=== PATIENT | female | born 1975 | race African-American/Black ===

== ENCOUNTER 2016-06-29 10:41 | Emergency (ER) | payer SELFPAY ==
[~2016-06-29] VITALS: Ht 165.1 cm; Wt 56.7 kg
[~2016-06-29 10:41] MED LIST: CEPHALEXIN500 MG ORAL; LEVAQUIN500 MG ORAL; NKM; ONDANSETRON ODT4 MG ORAL; PHENAZOPYRIDIN100 MG ORAL; PROMETHAZINE-C118 M1 ORAL
[2016-06-29 11:00] VITALS: BP 134/92
[2016-06-29 11:45] VITALS: BP 134/92
--- NOTE | 2016-06-29 13:23 | Emergency Room Report ---
History of Present Illness General Chief Complaint: Syncope Source: Patient Present Illness HPI 41 YOF came for alleged syncope. When I went to do HPI/PE with patient, she was on phone with (who is allegedly admitted here at [facility]). Patient refused to get off the phone. Told , "I dont know why I'm here, they said I passed out after I made your bed upstairs." I told patient I would come back to speak with her when she was off phone, but RN informed me patient had signed out AMA so she could go back upstairs. Allergies: Coded Allergies: PENICILLIN V (Unverified Allergy, Severe, 12/31/13) Patient History Past Medical History: unable to obtain Past Surgical History: unable to obtain Pertinent Family History: unable to obtain Social History: Denies: alcohol use, drug use, smoking Last Menstrual Period: none Now: No Immunizations: UTD Reviewed Nursing Documentation: PMH: Agreed, PSxH: Agreed Nursing Documentation-PMH Past Medical History: No History, Except For Hx Diabetes: Yes Hx Cancer: Yes - cervical 2011 Review of Systems All Other Systems: negative except mentioned in HPI - Patient AMAed prior Physical Exam Vital Signs Date Time Temp Pulse Resp B/P Pulse Ox O2 Delivery O2 Flow Rate FiO2 06/29/16 11:00 98.2 125 16 134/92 96 Room Air Sp02 EP Interpretation: reviewed, abnormal General Appearance: normal inspection, well appearing, no apparent distress, alert, GCS 15, non-toxic, other - Talking on phone in stretcher. Not post-ictal Head: normocephalic, atraumatic Eyes: bilateral eye EOMI, bilateral eye PERRL ENT: normal ENT inspection, normal voice Neck: normal inspection, full range of motion, supple Respiratory: normal inspection, no respiratory distress, no retraction, no accessory muscle use, no wheezing, speaking full sentences Cardiovascular #1: regular rate, rhythm, no edema, tachycardia Gastrointestinal: normal inspection, no guarding Musculoskeletal: normal inspection Neurologic: normal inspection, alert, oriented x3, responsive, speech normal Psychiatric: normal inspection, judgement/insight normal, mood/affect normal Skin: normal inspection, normal color, no rash Lymphatic: normal inspection Medical Decision Making Diagnostic Impression: Primary Impression: Syncope Qualified Codes: R55 - Syncope and collapse Additional Impression: Bronchitis ER Course 41 YOF with alleged syncopal episode. VS notable for tachycardia. Not post- ictal here. Atraumatic. Afebrile ECG notable for sinus tachycardia, no ischema Limited physical exam d/t patient wanting to leave AMA Patient is clinically sober, is free from from distracting injury, and has intact judgement and capacity to decide to leave against medical advice. Patient came in with atraumatic syncope. I'm concerned for cardiac abnormality, metabolic derangement, ?, UTI or other cause and wanted to do additional blood/urine testing and imaging. Patient verbalized understanding of my concern and my need to do the above testing but wants to leave to go be with her . I explained to patient the risks of leaving AMA and patient informed that if they he leaves, they could get worse, hse could become become critically ill, possibly become disabled or . Patient verbalized back to me understanding of these risks but still wants to leave. -- EKG Diagnostic Results Rate: normal, tachycardiac Rhythm: NSR ST Segments: no acute changes ASA given to the pt in ED: No Rhythm Strip Diag. Results EP Interpretation: yes Rate: 110 Rhythm: NSR, no PVC's, no ectopy Last Vital Signs Date Time Temp Pulse Resp B/P Pulse Ox O2 Delivery O2 Flow Rate FiO2 06/29/16 11:00 98.2 125 16 134/92 96 Room Air Status: improved Disposition: AGAINST MEDICAL ADVICE Referrals: NOT CHOSEN IPA/,REFERRING (PCP) JAE DONIS M.D. Jun 29, 2016 13:23
--- NOTE | 2016-06-30 15:50 | Cardiology Report ---
APPROVED REPORT EKG Measurement Heart [id number] Sinus tachycardia Otherwise normal ECG
== END 2016-06-29 11:45 | disposition left against medical advice (07) ==
LOC: EMR 11:22
DX: R55 Syncope and collapse (principal); J40 Bronchitis, not specified as acute or chronic; E11.9 Type 2 diabetes mellitus without complications; Z88.0 Allergy status to penicillin; Z85.41 Personal history of malignant neoplasm of cervix uteri
CPT/HCPCS: 82962; 93005; 99283

== ENCOUNTER 2016-06-29 15:32 | Emergency (ER) | payer SELFPAY ==
[~2016-06-29] VITALS: Ht 165.1 cm; Wt 59.0 kg
[2016-06-29 16:00] VITALS: BP 122/83
[2016-06-29] MEDS ORDERED: LORazepam Inj 2mg/ml 1ml IV ONE (16:00)
--- NOTE | 2016-07-02 14:35 | Emergency Room Report ---
History of Present Illness General Chief Complaint: Seizure Source: Medical Record Present Illness HPI 41 yo F presents to ED s/p seizure. patient was visiting her boyfriend on 4th floor of hospital when she had a witnessed seizure and fell. Rapid Response called and patient was immediately awake. patient brought down to ER for evaluation. patient doesn't remember what happened. ER Nursing staff says patient was here earlier today for similar presentation. patient had ALOC event while visiting boyfriend. patient denied any episode happened and signed out AMA. patient states she does not have history of seizures. states she drinks daily and her last drink was 3 days ago. feels tremulous and shaky. denies blurry vision, N/V. Denies other drug use. no other aggravating or relieving factors. denies any other associated symptoms. Allergies: Coded Allergies: PENICILLIN V (Unverified Allergy, Severe, 12/31/13) Patient History Past Medical History: DM Past Surgical History: none Pertinent Family History: none Social History: Denies: alcohol use, drug use, smoking Last Menstrual Period: Full hysterectomy Now: No Immunizations: UTD Reviewed Nursing Documentation: PMH: Agreed, PSxH: Agreed Nursing Documentation-PMH Hx Diabetes: Yes Hx Cancer: Yes - cervical 2011 Review of Systems All Other Systems: negative except mentioned in HPI Physical Exam Vital Signs Date Time Temp Pulse Resp B/P Pulse Ox O2 Delivery O2 Flow Rate FiO2 06/29/16 15:38 100.2 120 20 119/86 98 Room Air Sp02 EP Interpretation: reviewed, normal General Appearance: no apparent distress, alert, GCS 15, non-toxic Head: normocephalic, atraumatic Eyes: bilateral eye PERRL, bilateral eye normal inspection ENT: hearing grossly normal, normal pharynx, no angioedema, normal voice Neck: full range of motion, supple/symm/no masses Respiratory: chest non-tender, lungs clear, normal breath sounds, speaking full sentences Cardiovascular #1: regular rate, rhythm, no edema Cardiovascular #2: 2+ carotid (R), 2+ carotid (L), 2+ radial (R), 2+ radial (L) , 2+ dorsalis pedis (R), 2+ dorsalis pedis (L) Gastrointestinal: normal bowel sounds, non tender, soft, non-distended, no guarding, no rebound Rectal: deferred Genitourinary: normal inspection, no CVA tenderness Musculoskeletal: back normal, gait/station normal, normal range of motion, non- tender Neurologic: alert, oriented x3, responsive, motor strength/tone normal, sensory intact, speech normal Psychiatric: judgement/insight normal, memory normal, mood/affect normal, no suicidal/homicidal ideation Reflexes: 3+ bicep (R), 3+ bicep (L), 3+ tricep (R), 3+ tricep (L), 3+ knee (R) , 3+ knee (L) Skin: normal color, no rash, warm/dry, well hydrated Lymphatic: no adenopathy Medical Decision Making Diagnostic Impression: Primary Impression: Epileptic seizure, generalized ER Course 41 yo F presents to ED s/p seizure/fall on floor. witnessed Differential - ETOH withdrawal, intracranial injury, psychosis patient placed on stretcher. after initial history and evaluation I requested patient stay for proper evaluation given she signed out AMA last time. patient refused, patient is AAOX3. has competency to refuse care. signed AMA form diagnosis - seizure signed out AMA Last Vital Signs Date Time Temp Pulse Resp B/P Pulse Ox O2 Delivery O2 Flow Rate FiO2 06/29/16 16:00 120 20 Room Air 06/29/16 16:00 100.0 122/83 99 Status: improved Disposition: AGAINST MEDICAL ADVICE Condition: Unknown Referrals: NOT CHOSEN LYLE/,REFERRING (PCP) VIPIN HODGE M.D. Jul 02, 2016 14:35
== END 2016-06-29 16:00 | disposition left against medical advice (07) ==
LOC: EMR 16:00
DX: R56.9 Unspecified convulsions (principal); Z53.21 Procedure and treatment not carried out due to patient leaving prior to being seen by health care provider
CPT/HCPCS: 99283

== ENCOUNTER 2016-08-19 01:11 | Emergency (ER) | payer SELFPAY ==
[~2016-08-19] VITALS: Ht 165.1 cm; Wt 57.6 kg
[2016-08-19] MEDS ORDERED: Acetaminophen 500mg (ES) tab ORAL ONE (01:45)
[2016-08-19] MEDS ORDERED: TdaP Vaccine 0.5ml Syr IM ONE (01:45)
[2016-08-19] MEDS ORDERED: KEFLEX500 MG ORAL (02:27)
--- NOTE | 2016-08-19 02:27 | Emergency Room Report ---
History of Present Illness General Chief Complaint: Laceration Source: Patient Present Illness HPI Is a 41-year-old female with multiple medical problem. She presents with laceration to the left leg. Onset was 2 days ago. She slipped and fell and hit the corner of the stair. She been keeping it clean but he continued to bleed on and off. Because she is to bring her significant other here for other issues she went to check it out. Pain is 7/10. Worse with palpation. No redness. No fever. Allergies: Coded Allergies: PENICILLIN V (Unverified Allergy, Severe, 12/31/13) Patient History Past Medical History: see triage record, old chart reviewed Past Surgical History: other Pertinent Family History: none Social History: Denies: smoking Last Menstrual Period: NONE Now: No : 7 Immunizations: other Reviewed Nursing Documentation: PMH: Agreed, PSxH: Agreed Nursing Documentation-PMH Hx Diabetes: Yes Hx Cancer: Yes - OVARIAN CA Review of Systems Eye: Denies: blurred vision, eye pain ENT: Denies: ear pain, nose congestion, throat swelling Respiratory: Denies: cough, shortness of breath Cardiovascular: Denies: chest pain, palpitations Gastrointestinal: Denies: abdominal pain, diarrhea, nausea, vomiting Musculoskeletal: Denies: back pain, joint pain Skin: Denies: rash Neurological: Denies: headache, numbness Endocrine: Denies: increased thirst, increased urine Hematologic/Lymphatic: Denies: easy bruising All Other Systems: negative except mentioned in HPI Physical Exam Vital Signs Date Time Temp Pulse Resp B/P Pulse Ox O2 Delivery O2 Flow Rate FiO2 08/19/16 01:20 98.1 100 18 117/84 98 Room Air vitals normal Sp02 EP Interpretation: reviewed, normal General Appearance: well appearing, no apparent distress, alert Head: normocephalic, atraumatic Eyes: bilateral eye EOMI, bilateral eye PERRL ENT: hearing grossly normal, normal pharynx Neck: full range of motion, supple, no meningismus Respiratory: chest non-tender, lungs clear, normal breath sounds Cardiovascular #1: regular rate, rhythm, no murmur Gastrointestinal: normal bowel sounds, non tender, no mass, no organomegaly, no bruit, non-distended Musculoskeletal: back normal, gait/station normal, normal range of motion, other - Left lower leg: On the inner aspect of the midshaft there is a 3 cm laceration. Is gaping. No foreign body. No evidence of infection. Neurologic: alert, oriented x3 Psychiatric: mood/affect normal Skin: warm/dry Procedures Laceration/Wound Repair Laceration/Wound Repair : Consent: Verbal Wound Location: lower extremity Wound's Depth, Shape: linear, other Wound Length (cm): 3 Wound Explored: clean Irrigated w/ Saline (ccs): 1000 Betadine Prep?: Yes Anesthesia: 1% Lidocaine Volume Anesthetic (ccs): 3 Wound Repaired With: sutures Suture Size/Type: 3:0, proline Number of Sutures: 4 Patient Tolerated: Well Complications: None Medical Decision Making Diagnostic Impression: Primary Impression: Laceration ER Course Patient present with a laceration to her left lower extremity. He knows been over 40 hours, wound is clean. So is safe to be secondary closure. I will put her on antibiotics anyway. Last Vital Signs Date Time Temp Pulse Resp B/P Pulse Ox O2 Delivery O2 Flow Rate FiO2 08/19/16 01:20 98.1 100 18 117/84 98 Room Air Status: improved Disposition: HOME, SELF-CARE Condition: Stable Scripts Cephalexin* (KEFLEX*) 500 Mg Capsule 500 MG ORAL TID, #21 CAP 0 Refills Prov: CHIDI HAWTHORNE M.D. 08/19/16 Patient Instructions: Laceration Care, Adult Additional Instructions: Suture out in 7-10 days. Keep wound clean. Return symptom worsen or evidence of infection. CHIDI HAWTHORNE M.D. Aug 19, 2016 02:27
[2016-08-19 02:34] VITALS: BP 124/86
== END 2016-08-19 02:34 | disposition home or self-care (01) ==
LOC: EMR 01:36
DX: S81.812A Laceration without foreign body, left lower leg, initial encounter (principal); W01.0XXA Fall on same level from slipping, tripping and stumbling without subsequent striking against object, initial encounter; Y92.89 Other specified places as the place of occurrence of the external cause; Z23 Encounter for immunization; Z88.0 Allergy status to penicillin; E11.9 Type 2 diabetes mellitus without complications; Z85.43 Personal history of malignant neoplasm of ovary
CPT/HCPCS: 90471; 90715; 96372

== ENCOUNTER 2016-08-26 05:58 | Emergency (ER) | payer SELFPAY ==
[~2016-08-26] VITALS: Ht 165.1 cm; Wt 56.7 kg
[~2016-08-26 05:58] MED LIST changes: +KEFLEX500 MG ORAL
[2016-08-26 06:15] VITALS: BP 123/86
[2016-08-26 06:21] VITALS: BP 123/86
--- NOTE | 2016-08-26 07:04 | Emergency Room Report ---
History of Present Illness General Chief Complaint: Wound Recheck/Suture Removal Source: Patient Present Illness HPI Patient is a 41-year-old female presented for wound check after having suture placement approximately 9 days prior to arrival. The patient having mild itching. She denied any fever. She discharge. She denied any increase pain. Allergies: Coded Allergies: PENICILLIN V (Unverified Allergy, Severe, 12/31/13) Patient History Past Medical History: see triage record Last Menstrual Period: ten years ago Now: No : 7 Para: 7 Reviewed Nursing Documentation: PMH: Agreed, PSxH: Agreed Nursing Documentation-PMH Past Medical History: No History, Except For Hx Diabetes: No Hx Cancer: Yes - OVARIAN CA Review of Systems All Other Systems: negative except mentioned in HPI Physical Exam Vital Signs Date Time Temp Pulse Resp B/P Pulse Ox O2 Delivery O2 Flow Rate FiO2 08/26/16 06:02 98.2 91 20 123/86 96 Room Air General Appearance: well appearing, no apparent distress, alert, GCS 15 Head: normocephalic, atraumatic ENT: hearing grossly normal, normal voice Neck: full range of motion, supple Respiratory: no respiratory distress, speaking full sentences Musculoskeletal: no calf tenderness Neurologic: normal inspection, alert, oriented x3, responsive, normal gait Psychiatric: mood/affect normal Skin: other - healed laceration with slight erythema to suture sights Medical Decision Making Diagnostic Impression: Primary Impression: Encounter for removal of sutures ER Course . Patient presented for wound check. Differential diagnosis included was not limited to infected wound, nonhealed wound, neuroma, healed wound. Sutures were removed. The patient tolerated well. The patient is advised to discontinue use of antibiotic ointment. The patient presented to mild contact dermatitis due to Neosporin. Last Vital Signs Date Time Temp Pulse Resp B/P Pulse Ox O2 Delivery O2 Flow Rate FiO2 08/26/16 06:21 98.2 20 123/86 96 Room Air 08/26/16 06:02 91 Status: improved Disposition: HOME, SELF-CARE Condition: Stable Referrals: NOT CHOSEN IPA/,REFERRING (PCP) Patient Instructions: Suture Removal, Care After Sharath Heck August 26, 2016 07:04
== END 2016-08-26 06:21 | disposition home or self-care (01) ==
LOC: EMR 06:21
DX: S81.812D Laceration without foreign body, left lower leg, subsequent encounter (principal); X58.XXXD Exposure to other specified factors, subsequent encounter; Z48.02 Encounter for removal of sutures; Z88.0 Allergy status to penicillin; E11.9 Type 2 diabetes mellitus without complications; Z85.43 Personal history of malignant neoplasm of ovary
CPT/HCPCS: 99281

== ENCOUNTER 2018-03-06 10:54 | Emergency (ER) | payer MEDICAID ==
[~2018-03-06] VITALS: Ht 165.1 cm; Wt 54.4 kg
[2018-03-06] MEDS ORDERED: Isovue-300 100ml vial INJ PRN (11:30)
[2018-03-06] MEDS: Morphine Sulfate 4mg/ml Inj (IV/IM USE ONLY) IVP ONE (11:48)
[2018-03-06 12:03] LABS: APPEARANCE,URINE CLEAR; BILIRUBIN, URINE NEGATIVE (NEGATIVE); COLOR,URINE PALE YELLOW; GLUCOSE, URINE (UA) NEGATIVE (NEGATIVE); KETONES,URINE NEGATIVE (NEGATIVE); LEUKOCYTE ESTERASE ,URINE NEGATIVE (NEGATIVE); NITRITE,URINE NEGATIVE (NEGATIVE); PH,URINE 6 (4.5-8.0); PROTEIN,URINE NEGATIVE (NEGATIVE); UROBILINOGEN,URINE NORMAL MG/DL (0.0-1.0)
[2018-03-06 12:23] LABS: ANION GAP 16 mmol/L (5-15); BLOOD UREA NITROGEN 15 mg/dL (7-18); CALCIUM 9.3 MG/DL (8.5-10.1); CARBON DIOXIDE 20 MMOL/L (21-32); CHLORIDE 104 MMOL/L (98-107); CREATININE 0.7 MG/DL (0.55-1.30); POTASSIUM 3.5 MMOL/L (3.5-5.1); SODIUM 140 MMOL/L (136-145)
[2018-03-06 12:29] LABS: ALANINE AMINOTRANSFERASE 20 U/L (12-78); ALBUMIN 3.7 G/DL (3.4-5.0); ALBUMIN/GLOBULIN RATIO 0.9 (1.0-2.7); ALKALINE PHOSPHATASE 57 U/L (46-116); ASPARTATE AMINO TRANSFERASE 14 U/L (15-37); BILIRUBIN,TOTAL 0.1 MG/DL (0.2-1.0)
[2018-03-06 13:26] VITALS: BP 111/75
--- NOTE | 2018-03-06 13:52 | Diagnostic Imaging Report ---
Clinical Indication: Abdominal pain, nausea, vomiting Technique: No oral contrast utilized, per emergency room physician request IV administration nonionic contrast. Venous phase spiral acquisition obtained through the abdomen and pelvis. Multiplanar reconstructions were generated. Total dose length product 629.9 mGycm. CTDIvol(s) 12.54 mGy. Dose reduction achieved using automated exposure control Comparison: none Findings: The lack of enteric contrast limits assessment of the GI tract. The stomach is somewhat distended, filled with fluid and food. No definite obstructing lesion demonstrated. No small bowel distention. There is a broad-based umbilical hernia which contains mostly fat, but the edge of the transverse colon also protrudes slightly into it. The appendix is normal. There is colonic diverticulosis. No evidence of acute diverticulitis. No free or loculated intraperitoneal gas or fluid is evident. The distal esophagus is unremarkable. The liver, gallbladder, bile ducts, pancreas, spleen, adrenals are unremarkable. The left kidney demonstrates one or more subcentimeter low-attenuation lesions which are too small to characterize. The right kidney demonstrates a lower pole cyst, as well as subcentimeter low-attenuation lesions which are too small to characterize. A 3 mm calculus is seen within the interpolar region collecting system. No ureteral calculi, hydronephrosis, or hydroureter. The bladder is distended. The uterus is not visualized, presumably surgically absent. There is a metallic foreign body in the left adnexal region as well as a small cyst, although an ovary itself is not demonstrated. Surgical metal is seen also in the right adnexal region. There is a thick-walled cyst versus unopacified small bowel loop in the right adnexal region. This measures 2.1 cm in diameter. Included lung bases demonstrate some posterior dependent atelectatic changes. A small air cyst is seen at the left lung base. The bones are unremarkable. Impression: Limited assessment of the GI tract, due to lack of enteric contrast administration Distended stomach, but no definite obstructive lesion. Significance/etiology uncertain Colonic diverticulosis. No evidence of diverticulitis Nonobstructive right renal 3 mm calyceal calculus Metallic foreign bodies seen in the bilateral adnexal regions, could represent tubal occlusion devices among other possibilities. Correlate with surgical history Evidence of prior hysterectomy. 2.1 cm right adnexal thick-walled cyst versus unopacified small bowel. Recommend ultrasound for further evaluation Other findings as noted, including broad-based umbilical hernia, small left basilar pulmonary air cyst, posterior dependent atelectatic changes The CT scanner at [facility] is accredited by the [employer] and the scans are performed using protocols designed to limit radiation exposure to as low as reasonably achievable to attain images of sufficient resolution adequate for diagnostic evaluation.
[2018-03-06] MEDS ORDERED: MAGNESIUM CITR296 M1 PO (14:24)
[2018-03-06] MEDS ORDERED: COLACE100 MG ORAL (14:24)
[2018-03-06 14:30] VITALS: BP 124/78
[2018-03-06 14:45] VITALS: BP 124/78
--- NOTE | 2018-03-06 15:12 | Emergency Room Report ---
History of Present Illness General Chief Complaint: Abdominal Pain Source: Patient Present Illness HPI 42-year-old female presents ED complaining of abdominal pain. Has been persistent for the last few weeks. States she was seen at [facility] last week for the same pain. States that her discharge papers mention that she had "some problem". However she lost discharge papers. Does not know the follow- up plan after discharge. Pain is 8 out of 10, sharp, nonradiating. Denies nausea or vomiting. Denies fevers or chills. Denies chest pain. No other aggravating relieving factors. Denies any other associated symptoms Allergies: Coded Allergies: PENICILLIN V (Unverified Allergy, Severe, 12/31/13) Patient History Past Surgical History: other - ovarian surgery Pertinent Family History: none Social History: Denies: smoking, alcohol use, drug use Now: No Immunizations: UTD Reviewed Nursing Documentation: PMH: Agreed; PSxH: Agreed Nursing Documentation-PMH Past Medical History: No History, Except For Hx Diabetes: No Hx Cancer: Yes - OVARIAN CA Hx Neurological Problems: Yes - Neuropathy Review of Systems All Other Systems: negative except mentioned in HPI Physical Exam Vital Signs Date Time Temp Pulse Resp B/P (MAP) Pulse Ox O2 Delivery O2 Flow Rate FiO2 03/06/18 11:02 98.2 97 20 103/64 98 Room Air Sp02 EP Interpretation: reviewed, normal General Appearance: no apparent distress, alert, GCS 15, non-toxic Head: normocephalic, atraumatic Eyes: bilateral eye normal inspection, bilateral eye PERRL ENT: hearing grossly normal, normal pharynx, no angioedema, normal voice Neck: full range of motion, supple/symm/no masses Respiratory: chest non-tender, lungs clear, normal breath sounds, speaking full sentences Cardiovascular #1: regular rate, rhythm, no edema Cardiovascular #2: 2+ carotid (R), 2+ carotid (L), 2+ radial (R), 2+ radial (L) , 2+ dorsalis pedis (R), 2+ dorsalis pedis (L) Gastrointestinal: normal bowel sounds, soft, non-distended, no guarding, no rebound, tenderness Rectal: deferred Genitourinary: normal inspection, no CVA tenderness Musculoskeletal: back normal, gait/station normal, normal range of motion, non- tender Neurologic: alert, oriented x3, responsive, motor strength/tone normal, sensory intact, speech normal Psychiatric: judgement/insight normal, memory normal, mood/affect normal, no suicidal/homicidal ideation Reflexes: 3+ bicep (R), 3+ bicep (L), 3+ tricep (R), 3+ tricep (L), 3+ knee (R) , 3+ knee (L) Skin: normal color, no rash, warm/dry, well hydrated Lymphatic: no adenopathy Medical Decision Making Diagnostic Impression: Primary Impression: Abdominal pain Qualified Codes: R10.84 - Generalized abdominal pain ER Course Hospital Course 42-year-old F presents to ED with abdominal pain Differential diagnosis includes-appendicitis, cholecystitis, small bowel obstruction, gastritis, Clinical course Patient placed on stretcher. After initial history and physical I ordered labs , IV fluids, pain medications and CT scan Labs - no leukocytosis, electrolytes ok, LFTs normal, UA unremarkable CT scan shows no acute pathology Discussed findings with patient. There is no evidence of acute abdomen suggesting further workup at this time. I recommended patient follow-up with [facility] to obtain their records as to what her abdominal pathology might be. On my evaluation of the CT I do see significant fecal impaction. I recommend Colace and magnesium citrate. we will provde patient a copy of her CT report I feel this is a highly complex case requiring extensive working including EKG/ Rhythm strip, Xray/CT/US, Blood/urine lab work, repeat exams while in ED, and administration of strong opiates/narcotics for pain control, admission to hospital or close patient follow up. Diagnosis - abdominal pain Stable and discharged to home with Rx Colace, Mag citrate. Followup with PMD. Return to ED if symptoms recur or worsen Labs Test 03/06/18 11:46 Urine Color Pale yellow Urine Appearance Clear Urine pH 6 (4.5-8.0) Urine Specific [place] 1.015 (1.005-1.035) Urine Protein Negative (NEGATIVE) Urine Glucose (UA) Negative (NEGATIVE) Urine Ketones Negative (NEGATIVE) Urine Blood Negative (NEGATIVE) Urine Nitrite Negative (NEGATIVE) Urine Bilirubin Negative (NEGATIVE) Urine Urobilinogen Normal MG/DL (0.0-1.0) Urine Leukocyte Esterase Negative (NEGATIVE) Urine HCG, Qualitative Negative (NEGATIVE) Sodium Level 140 MMOL/L (136-145) Potassium Level 3.5 MMOL/L (3.5-5.1) Chloride Level 104 MMOL/L (98-107) Carbon Dioxide Level 20 MMOL/L (21-32) Anion Gap 16 mmol/L (5-15) Blood Urea Nitrogen 15 mg/dL (7-18) Creatinine 0.7 MG/DL (0.55-1.30) Estimat Glomerular Filtration Rate > 60 mL/min (>60) Glucose Level 72 MG/DL (74-106) Calcium Level 9.3 MG/DL (8.5-10.1) Total Bilirubin 0.1 MG/DL (0.2-1.0) Aspartate Amino Transf (AST/SGOT) 14 U/L (15-37) Alanine Aminotransferase (ALT/SGPT) 20 U/L (12-78) Alkaline Phosphatase 57 U/L (46-116) Total Protein 7.6 G/DL (6.4-8.2) Albumin 3.7 G/DL (3.4-5.0) Globulin 3.9 g/dL Albumin/Globulin Ratio 0.9 (1.0-2.7) Lipase 130 U/L (73-393) CT/MRI/US Diagnostic Results CT/MRI/US Diagnostic Results : Imaging Test Ordered: CT A/P Impression Limited assessment of the GI tract, due to lack of enteric contrast administration Distended stomach, but no definite obstructive lesion. Significance/etiology uncertain Colonic diverticulosis. No evidence of diverticulitis Nonobstructive right renal 3 mm calyceal calculus Metallic foreign bodies seen in the bilateral adnexal regions, could represent tubal occlusion devices among other possibilities. Correlate with surgical history Evidence of prior hysterectomy. 2.1 cm right adnexal thick-walled cyst versus unopacified small bowel. Recommend ultrasound for further evaluation Other findings as noted, including broad-based umbilical hernia, small left basilar pulmonary air cyst, posterior dependent atelectatic changes Last Vital Signs Date Time Temp Pulse Resp B/P (MAP) Pulse Ox O2 Delivery O2 Flow Rate FiO2 03/06/18 14:45 98.2 87 20 124/78 99 Room Air Status: improved Disposition: HOME, SELF-CARE Condition: Stable Scripts Magnesium Citrate (MAGNESIUM CITRATE) 296 Ml Solution 150 ML PO DAILY, #296 ML Prov: Ayden Maria MD 03/06/18 Docusate Sodium* (COLACE*) 100 Mg Capsule 100 MG ORAL THREE TIMES A DAY for 30 Days, CAP Prov: Ayden Maria MD 03/06/18 Patient Instructions: Abdominal Pain, Adult, [id number] Additional Instructions: you need to followup with GI for an endoscopy Ayden Maria MD Mar 06, 2018 15:12
== END 2018-03-06 14:45 | disposition home or self-care (01) ==
LOC: EMR 11:30
DX: R10.9 Unspecified abdominal pain (principal); Z85.43 Personal history of malignant neoplasm of ovary; Z88.0 Allergy status to penicillin; K57.30 Diverticulosis of large intestine without perforation or abscess without bleeding; N20.0 Calculus of kidney
CPT/HCPCS: 36415; 74177; 80053; 81003; 81025; 83690; 96361; 96374; 99284